=== PATIENT | female | born 1950 | race Caucasian/White ===

== ENCOUNTER 2018-03-11 06:38 | Day surgery (SDC) | payer MEDICARE, OTHER ==
[2018-03-11] MEDS ORDERED: Sodium Chloride 0.9% 10 ML Syringe FLUSH PRN ×2 (06:45→08:00)
[2018-03-11] MEDS: Lactated Ringers 1,000 ML IV SCH ×2 (07:13→08:44)
[2018-03-11] MEDS ORDERED: Propofol 200 MG/20 ML SDV IV ONE (08:00)
[2018-03-11] MEDS ORDERED: Lactated Ringers 1,000 ML IV SCH (08:00)
[2018-03-11] MEDS ORDERED: Ondansetron 4 MG/2 ML SDV IVPUSH ONE (08:00)
[2018-03-11] MEDS ORDERED: Simethicone Drops 40 MG/0.6 ML 30 ML Bottle ONE (08:19)
--- NOTE | 2018-03-11 08:33 | PCM.OPNOTE ---
- General Post-Op/Procedure Note Date of Surgery/Procedure: 03/11/18 Operative Procedure(s): c scope Findings: normal exam Pre Op Diagnosis: screening Post-Op Diagnosis: nl exam Anesthesia Technique: MAC Primary Surgeon: Erasmo Terrell Anesthesia Provider: Viet Mayer Pathology: none Complications: None Condition: Good Free Text/Narrative:: see dictation
--- NOTE | 2018-03-11 15:41 | OR ---
DATE OF OPERATION: 03/11/2018 SURGEON: Erasmo Terrell MD PROCEDURE PERFORMED: Colonoscopy. PREOPERATIVE DIAGNOSIS: Need for screening C-scope. POSTOPERATIVE DIAGNOSIS: Normal exam. INDICATIONS FOR PROCEDURE: This is a 67-year-old white female, who presents for her 10-year followup colonoscopy. She is without complaints. DESCRIPTION OF OPERATION: After an excellent IV sedation was administered, digital rectal exam was performed. No marked abnormality was noted. Flexible colonoscope was inserted and advanced to the cecum without difficulty. The prep was excellent. The following findings were noted. Ascending colon, unremarkable. Transverse colon, unremarkable. Descending colon, unremarkable. Sigmoid and rectum, unremarkable except for some scattered diveticuli. Colon was deflated as the scope was removed. The patient tolerated the procedure well and was taken to recovery in good condition. Repeat scope in 10 years. /[id number] MARIE/MARIA ANTONIA FRANCIS
== END 2018-03-11 09:45 | disposition home or self-care (01) ==
LOC: FB.SDS 06:38
PROVIDERS: ATTEND Surgery
DX: Z12.11 Encounter for screening for malignant neoplasm of colon (principal); K57.30 Diverticulosis of large intestine without perforation or abscess without bleeding; E66.9 Obesity, unspecified; Z68.41 Body mass index [BMI] 40.0-44.9, adult; E78.5 Hyperlipidemia, unspecified; Z87.891 Personal history of nicotine dependence; Z79.899 Other long term (current) drug therapy
CPT/HCPCS: 00812; A9270; G0121; J2405; J2704; J7120

== ENCOUNTER 2020-02-06 11:16 | Emergency (ER) | payer MEDICARE, OTHER ==
[2020-02-06] MEDS ORDERED: Sodium Chloride 0.9% 10 ML Syringe FLUSH PRN (11:45)
[2020-02-06] MEDS ORDERED: Ondansetron 4 MG/2 ML SDV IVPUSH ONE (11:48)
[2020-02-06] MEDS ORDERED: Iopamidol 755 Mg/ML 100 ML Bottle IV ONE (12:01)
--- NOTE | 2020-02-06 14:08 | PCM.SN.2 ---
- Free Text/Narrative Note: [facility] Date: 02/06/20 Time: 1328 to 1350 Dx: S/p Left TKA [02/02/2020], Sudden SOB during outpatient P.T. and Difficult Peripheral Venous Access Rx: Obtain Peripheral Venous Access for C.T. Scan I was called to the ED by the ED RN for placement of a larger bore venous cathet er after failed attempts by her. This patient does have a #22 GA. venous catheter in her left ACF that flushes easily. I attempted several times [3] for placement but however I could not either thread the catheter or the vein would rupture as I threaded the catheter. I then consulted the account development associate and explained the situation and he thought that "they could work with it". I did offer to try again but the tech said just wait and see. Jamal Delgado CRNA, A
--- NOTE | 2020-02-06 15:50 | EDM.PDOC ---
ED HPI GENERAL MEDICAL PROBLEM - General Chief Complaint: General Stated Complaint: LETHARGIC HYPOXIA Time Seen by Provider: 02/06/20 11:25 Source of Information: Reports: Patient History Limitations: Reports: No Limitations - History of Present Illness INITIAL COMMENTS - FREE TEXT/NARRATIVE: Patient presented to the ED because of dyspnea even with mild exertion . There is no associated chest pain N/V, diaphoresis. Denies any fever/chills or any cough/cold symptoms. She had a left knee surgery 5 days ago and since then it seems that she is going down hill according to her. - Related Data Allergies Allergy/AdvReac Type Severity Reaction Status Date / Time SEASONAL Allergy Other Uncoded 03/08/18 13:46 Home Meds: Home Meds Calcium Carb/Magnesium Hydrox [Eq Antacid Extra Str Tab Chew] 1 tab PO ASDIRECTED PRN 03/08/18 [History] Chlorpheniramine Maleate 4 mg PO DAILY PRN 03/08/18 [History] Multivitamin [Daily Multiple Vitamin] 1 tab PO DAILY 03/08/18 [History] Omeprazole Magnesium [Prilosec Otc] 20 mg PO DAILY PRN 03/08/18 [History] Ubidecarenone [Coenzyme Q10] 50 mg PO DAILY 03/08/18 [History] Acetaminophen [Tylenol] 650 mg PO Q6H PRN 02/06/20 [History] Aspirin [Halfprin] 81 mg PO BID 02/06/20 [History] Calcium Carb, Citrate/Vit D3 [Citracal + D ER] 1 tab PO BID 02/06/20 [History] Celecoxib [CeleBREX] 200 mg PO BID 02/06/20 [History] Docusate Sodium/Sennosides [Senna Plus] 1 tab PO BID 02/06/20 [History] Pravastatin [Pravachol] 40 mg PO DAILY 02/06/20 [History] Past Medical History HEENT History: Reports: Impaired Vision, Other (See Below) Other HEENT History: SENILE NUCLEAR SCLEROSIS, HYPEROPIA, ASTIGMATISM, PSTERIOR VITREOUS DETACHMENT OF RT EYE Cardiovascular History: Reports: High Cholesterol Respiratory History: Reports: None Gastrointestinal History: Reports: Diverticulosis Other Genitourinary History: MALIGNANT NEOPLASM OF OVERLAPPING SITES OF BLADDER, MICROSCOPIC HEMATURIA. STATES TOOK RADIATION FOR IT 2016 WOOD STAINER History: Reports: Other WOOD STAINER History: I PARA II. Musculoskeletal History: Reports: Other (See Below) Other Musculoskeletal History: DDD(DEGENERATIVE DISC DISEASE), CERVICAL Neurological History: Reports: None Psychiatric History: Reports: None Endocrine/Metabolic History: Reports: Multinodular Thyroid Hematologic History: Reports: None Immunologic History: Reports: None Oncologic (Cancer) History: Reports: Bladder Dermatologic History: Reports: Other (See Below) Other Dermatologic History: DEMATOPHYTOSIS OF NAIL, ALOPECIA - Infectious Disease History Infectious Disease History: Reports: Chicken Pox, Measles, Mumps, Rubella - Past Surgical History Head Surgeries/Procedures: Reports: None GI Surgical History: Reports: Cholecystectomy, Colonoscopy Female Surgical History: Reports: Cystoscopy, Hysterectomy, Oophorectomy, TURBT, Other (See Below) Other Female Surgeries/Procedures: POSTMENOPAUSAL ATROPHIC VAGINITIS Musculoskeletal Surgical History: Reports: Other (See Below) Other Musculoskeletal Surgeries/Procedures:: FOOT SURGERY WITH SCREW PLACEMENT RIGHT HEEL. Social & Family History - Family History GI: Reports: None - Caffeine Use Caffeine Use: Reports: Coffee, Soda ED ROS GENERAL - Review of Systems Review Of Systems: See Below Constitutional: Reports: No Symptoms HEENT: Reports: No Symptoms Respiratory: Reports: Shortness of Breath. Denies: Cough Cardiovascular: Reports: No Symptoms Endocrine: Reports: No Symptoms GI/Abdominal: Reports: No Symptoms : Reports: No Symptoms Musculoskeletal: Reports: Joint Swelling Skin: Reports: No Symptoms Neurological: Reports: No Symptoms Psychiatric: Reports: No Symptoms Hematologic/Lymphatic: Reports: No Symptoms ED EXAM, GENERAL - Physical Exam Exam: See Below Exam Limited By: No Limitations General Appearance: Alert, No Apparent Distress Ears: Normal External Exam, Normal Canal Nose: Normal Inspection, Normal Mucosa Throat/Mouth: Normal Inspection, Normal Lips, Normal Teeth, Normal Gums Head: Atraumatic, Normocephalic Neck: Normal Inspection, Supple, Non-Tender, Full Range of Motion Respiratory/Chest: No Respiratory Distress, Lungs Clear, Normal Breath Sounds Cardiovascular: Normal Peripheral Pulses, Regular Rate, Rhythm, No Edema, No Gallop GI/Abdominal: Normal Bowel Sounds, Soft, Non-Tender, No Organomegaly Back Exam: Normal Inspection, Full Range of Motion Extremities: Pedal Edema, Joint Swelling, Leg Pain Neurological: Alert, Oriented, CN II-XII Intact Psychiatric: Normal Affect Course - Vital Signs Text/Narrative:: Labs/EKG/ was reviewed with patient and family LLE-negative for DVT D-dimer -elevated Pro BNP-more than 2690 Trop-neg Lasix 40 mg IV x1 Zaroxolyn 2.5 mg po x1 - Orders/Labs/Meds Orders: Active Orders 24 hr Category Date Time Status EKG Documentation Completion [RC] ASDIRECTED Care 02/06/20 11:47 Active VL Duplex Lwr Ext Veins Ltd Lt [US] Stat Exams 02/06/20 12:49 Taken Sodium Chloride 0.9% [Saline Flush] Med 02/06/20 11:45 Active 10 ml FLUSH ASDIRECTED PRN Saline Lock Insert [OM.PC] Routine Oth 02/06/20 11:45 Ordered EKG 12 Lead [EK] Routine Ther 02/06/20 11:45 Ordered Medication Orders Sodium Chloride (Saline Flush) 10 ml FLUSH ASDIRECTED PRN PRN Reason: Keep Vein Open Last Admin: 02/06/20 16:05 Dose: 10 ml Documented by: MARINA Labs: Laboratory Tests 02/06/20 02/06/20 02/06/20 Range/Units 12:25 12:25 12:25 WBC 14.0 H (4.5-12.0) X10-3/uL RBC 3.86 (3.23-5.20) x10(6)uL Hgb 11.8 (11.5-15.5) g/dL Hct 34.4 (30.0-51.3) % MCV 89.2 (80-96) fL MCH 30.7 (27.7-33.6) pg MCHC 34.5 (32.2-35.4) g/dL RDW 12.2 (11.5-15.5) % Plt Count 454 H (125-369) X10(3)uL MPV 6.5 L (7.4-10.4) fL Neut % (Auto) 78.4 (46-82) % Lymph % (Auto) 10.6 L (13-37) % [place] % (Auto) 9.5 (4-12) % Eos % (Auto) 1 (1.0-5.0) % Baso % (Auto) 0 (0-2) % Neut # (Auto) 10.9 H (1.6-8.3) # Lymph # (Auto) 1.5 (0.6-5.0) # Amite # (Auto) 1.3 (0.0-1.3) # Eos # (Auto) 0.2 (0.0-0.8) # Baso # (Auto) 0.1 (0.0-0.2) # PT 9.8 (9.0-11.1) sec INR 0.90 L (1.00-1.24) APTT 21.8 L (24.4-33.2) SECONDS D-Dimer, Quantitative 1.74 H (0.0-0.59) mg/LFEU Sodium 132 L (135-145) mmol/L Potassium 4.3 (3.5-5.3) mmol/L Chloride 97 L (100-110) mmol/L Carbon Dioxide 32 (21-32) mmol/L BUN 16 (7-18) mg/dL Creatinine 0.8 (0.55-1.02) mg/dL Est Cr Clr Drug Dosing TNP Estimated GFR (MDRD) > 60 (>60) BUN/Creatinine Ratio 20.0 (9-20) Glucose 111 (80-116) mg/dL Calcium 8.4 L (8.6-10.2) mg/dL Total Bilirubin 0.6 (0.1-1.3) mg/dL AST 18 (5-25) IU/L ALT 21 (12-36) U/L Alkaline Phosphatase 78 (56-112) IU/L Troponin I (4.0-60.3) pg/mL NT-Pro-B Natriuret Pep (<=125) pg/mL Total Protein 6.5 (6.0-8.0) g/dL Albumin 2.7 L (3.2-4.6) g/dL Globulin 3.8 g/dL Albumin/Globulin Ratio 0.7 //20 Range/Units 12:25 WBC (4.5-12.0) X10-3/uL RBC (3.23-5.20) x10(6)uL Hgb (11.5-15.5) g/dL Hct (30.0-51.3) % MCV (80-96) fL MCH (27.7-33.6) pg MCHC (32.2-35.4) g/dL RDW (11.5-15.5) % Plt Count (125-369) X10(3)uL MPV (7.4-10.4) fL Neut % (Auto) (46-82) % Lymph % (Auto) (13-37) % Amite % (Auto) (4-12) % Eos % (Auto) (1.0-5.0) % Baso % (Auto) (0-2) % Neut # (Auto) (1.6-8.3) # Lymph # (Auto) (0.6-5.0) # Amite # (Auto) (0.0-1.3) # Eos # (Auto) (0.0-0.8) # Baso # (Auto) (0.0-0.2) # PT (9.0-11.1) sec INR (1.00-1.24) APTT (24.4-33.2) SECONDS D-Dimer, Quantitative (0.0-0.59) mg/LFEU Sodium (135-145) mmol/L Potassium (3.5-5.3) mmol/L Chloride (100-110) mmol/L Carbon Dioxide (21-32) mmol/L BUN (7-18) mg/dL Creatinine (0.55-1.02) mg/dL Est Cr Clr Drug Dosing Estimated GFR (MDRD) (>60) BUN/Creatinine Ratio (9-20) Glucose (80-116) mg/dL Calcium (8.6-10.2) mg/dL Total Bilirubin (0.1-1.3) mg/dL AST (5-25) IU/L ALT (12-36) U/L Alkaline Phosphatase (56-112) IU/L Troponin I 35.1 (4.0-60.3) pg/mL NT-Pro-B Natriuret Pep 2690 H* (<=125) pg/mL Total Protein (6.0-8.0) g/dL Albumin (3.2-4.6) g/dL Globulin g/dL Albumin/Globulin Ratio Meds: Medications Generic Name Dose Route Start Last Admin Trade Name Freq PRN Reason Stop Dose Admin Sodium Chloride 10 ml 02/06/20 11:45 02/06/20 16:05 Saline Flush FLUSH 10 ml ASDIRECTED PRN Administration Keep Vein Open Discontinued Medications Generic Name Dose Route Start Last Admin Trade Name Freq PRN Reason Stop Dose Admin Furosemide 40 mg 02/06/20 15:57 02/06/20 16:04 Lasix IVPUSH 02/06/20 15:58 40 mg NOW ONE Administration Iopamidol 100 ml 02/06/20 12:01 02/06/20 15:44 Isovue-370 (76%) IV 02/06/20 12:02 Not Given . DIRECTED ONE Metolazone 2.5 mg 02/06/20 15:57 02/06/20 16:05 Zaroxolyn PO 02/06/20 15:58 2.5 mg ONETIME ONE Administration Ondansetron HCl 4 mg 02/06/20 11:48 02/06/20 16:04 Zofran IVPUSH 02/06/20 11:49 Not Given ONETIME ONE Departure - Departure Time of Disposition: 17:00 Disposition: DC/Tfer to Acute Hospital 02 Condition: Good Clinical Impression: New onset of congestive heart failure, Elevated d-dimer, Post-op pain - Discharge Information Referrals: Chelsea Sharma NP [Primary Care Provider] - Forms: ED Department Discharge - My Orders Last 24 Hours: My Active Orders 02/06/20 11:45 Sodium Chloride 0.9% [Saline Flush] 10 ml FLUSH ASDIRECTED PRN Saline Lock Insert [OM.PC] Routine EKG 12 Lead [EK] Routine 02/06/20 11:47 EKG Documentation Completion [RC] ASDIRECTED 02/06/20 12:49 VL Duplex Lwr Ext Veins Ltd Lt [US] Stat - Assessment/Plan Last 24 Hours: My Active Orders 02/06/20 11:45 Sodium Chloride 0.9% [Saline Flush] 10 ml FLUSH ASDIRECTED PRN Saline Lock Insert [OM.PC] Routine EKG 12 Lead [EK] Routine 02/06/20 11:47 EKG Documentation Completion [RC] ASDIRECTED 02/06/20 12:49 VL Duplex Lwr Ext Veins Ltd Lt [US] Stat
[2020-02-06] MEDS ORDERED: Metolazone 2.5 MG Tab PO ONE (15:57)
[2020-02-06] MEDS ORDERED: Furosemide 40 MG/4 ML VIAL IVPUSH ONE (15:57)
--- NOTE | 2020-02-06 19:16 | US ---
INDICATION: Swelling lower extremity; question DVT. DUPLEX ULTRASOUND, LOWER EXTREMITY VEINS: Utilizing 2-D real time, duplex Doppler spectral analysis and color flow imaging, examination of the lower extremity veins, including the common femoral vein, proximal deep femoral vein, proximal femoral vein, mid femoral vein, distal femoral vein, popliteal vein, posterior tibial vein, anterior tibial vein, and peroneal vein, revealed no evidence of deep venous thrombosis or obstruction (greater saphenous vein was not visualized). Compression views showed no abnormal lack of compression to suggest thrombosis. Detail is somewhat limited due to patient body habitus - difficult examination. No evidence of incompetence of the valves was identified. IMPRESSION: Duplex ultrasound, lower extremity veins, shows no evidence of deep venous thrombosis or incompetence. Report was called to Dr. Ruth at 1540 hours approximately. [facility]
== END 2020-02-06 17:07 ==
LOC: FB.ED 11:16
DX: I50.9 Heart failure, unspecified (principal); R79.1 Abnormal coagulation profile; G89.18 Other acute postprocedural pain; M25.562 Pain in left knee; E78.00 Pure hypercholesterolemia, unspecified; Z79.82 Long term (current) use of aspirin; Z79.899 Other long term (current) drug therapy; Z91.09 Other allergy status, other than to drugs and biological substances; Z90.710 Acquired absence of both cervix and uterus; Z90.49 Acquired absence of other specified parts of digestive tract
CPT/HCPCS: 36415; 80053; 83880; 84484; 85025; 85379; 85610; 85730; 93005; 93971; 96374; 99285; A9270; J1940